=== PATIENT | female | born 2000 | race African-American/Black ===

== ENCOUNTER 2021-02-13 00:32 | Inpatient (IN) ==
[2021-02-13 01:18] LABS: Basophils % 0.3 % (0.0-0.8); Eosinophils # 0.1 10*3/uL (0.0-0.87); Eosinophils % 0.4 % (0.00-10.9); Hematocrit 36.9 VOL% (35.7-47.0); Hemoglobin 12.7 GM/DL (12.0-16.0); Immature Granulocytes % 0.3 %; Immature Granulocytes Absolute 0.03 #; Lymphocytes # 3.5 10*3/uL (1.4-4.0); Mean Corpuscular HGB Conc 34.4 GM/DL (32-36); Mean Corpuscular Volume 84.4 FL (87-102); Mean Platelet Volume 12.3 FL (9.6-12.0); Monocytes % 8.1 % (1.7-12.7); Neutrophils % 59.9 % (38.7-73.9); Platelet Count 176 T/CUMM (130-400); Red Blood Count 4.37 MC/CUMM (3.8-5.5); Red Cell Distribution Width 12.5 % (9.3-17.3); White Blood Count 11.1 T/CUMM (4-12)
[2021-02-13 01:36] LABS: Alanine Aminotransferase 11 U/L (13-56); Albumin 2.8 G/DL (3.4-5.0); Alkaline Phosphatase 92 U/L (45-117); Aspartate Amino Transferase 18 U/L (0-37); Bilirubin,Direct < 0.100 MG/DL (0.0-0.20); Bilirubin,Total < 0.39 MG/DL (0.20-1.00); Blood Urea Nitrogen 16 MG/DL (7-18); Calcium 8.9 MG/DL (8.5-10.1); Carbon Dioxide 20 MMOL/L (21-32); Estimated Glom Filtration Rate 131 ML/MIN; Glucose 85 MG/DL (74-106); Osmolality,Calculated 274.7 MOS/KG (273-304); Potassium 3.9 MMOL/L (3.5-5.1); Sodium 138 MMOL/L (136-145); Total Protein 6.9 G/DL (6.4-8.2); Uric Acid 5.4 MG/DL (2.6-6.0)
[2021-02-13 01:42] LABS: INR 0.9; PT Patient Result 10.1 SECS (10.5-12.0); Partial Thromboplastin Time 28.8 SECS (23.9-33.8)
[2021-02-13] MEDS ORDERED: LABETALOL 100 MG/20 ML VIAL IV PRN ×2 (01:44)
[2021-02-13] MEDS ORDERED: LABETALOL 20 MG/4 ML SYRINGE IV PRN (01:44)
[2021-02-13] MEDS ORDERED: LABETALOL 100 MG/20 ML VIAL IV ONE (01:46)
[2021-02-13] MEDS ORDERED: ONDANSETRON 4 MG/2 ML VIAL ONE (01:46)
[2021-02-13] MEDS ORDERED: ONDANSETRON 4 MG/2 ML VIAL IV PRN (01:50)
[2021-02-13] MEDS ORDERED: LABETALOL 20 MG/4 ML SYRINGE IV ONE (01:50)
[2021-02-13] MEDS ORDERED: LACTATED RINGERS 1,000 ML IV SCH (02:00)
[2021-02-13] MEDS ORDERED: MAGNESIUM SULF RIDER 4 GM/100 ML PREMIX IV ONE (02:21)
[2021-02-13] MEDS ORDERED: MAGNESIUM SULFATE 1 GM/2 ML VIAL IM ONE (02:21)
[2021-02-13] MEDS ORDERED: MAGNESIUM SULF DRIP 40 GM/1,000 ML ML IV ONE (02:21)
[2021-02-13] MEDS ORDERED: MEPERIDINE 50 MG/1 ML VIAL ONE (02:22)
[2021-02-13] MEDS ORDERED: BUTORPHANOL 2 MG/ML VIAL IV PRN (02:22)
[2021-02-13] MEDS: MEPERIDINE 50 MG/1 ML VIAL IV PRN (02:27)
[2021-02-13] MEDS ORDERED: PROMETHAZINE 25 MG/1 ML VIAL IM ONE (02:38)
[2021-02-13] MEDS ORDERED: BETAMETH SODIUM PHOS/ACETATE 30 MG/5 ML VIAL IM SCH (02:38)
[2021-02-13] MEDS ORDERED: PROMETHAZINE 25 MG/1 ML VIAL ONE (02:39)
[2021-02-13] MEDS ORDERED: BETAMETH SODIUM PHOS/ACETATE 30 MG/5 ML VIAL ONE (02:40)
[2021-02-13 02:50] LABS: Blood, Urine Negative (Negative); Glucose,Urine (UA) Negative (Negative); Hyaline Casts,Urine 10 /LPF (0-3); Ketones,Urine 5 mg/dL (Negative); Mucus,Urine Many /LPF (Occasional); Nitrite,Urine Negative (Negative); Protein,Urine >=500 MG/DL; RBC,Urine 8 /HPF (0-4); Squamous Epithelial Cell,Urine Few /HPF (0-10); Urine Appearance CLEAR (Clear); Urine Color Amber (Yellow); Urine Specific Gravity 1.041 (1.001-1.035)
[2021-02-13 02:55] LABS: Bilirubin,Urine Small mg/dL (Negative)
[2021-02-13] MEDS ORDERED: MAGNESIUM SULF DRIP 40 GM/1,000 ML ML IV SCH (03:00)
[2021-02-13 03:14] LABS: Barbiturates Screen,Urine Negative (Negative); Benzodiazepines Screen,Urine Negative (Negative); Cannabinoid Screen,Urine Positive (Negative); Opiate Screen,Urine Negative (Negative); Phencyclidine Screen,Urine Negative (Negative)
[2021-02-13 03:43] LABS: Protein/Creatinine Ratio,Urine 0.8 RATIO
[2021-02-13 07:31] LABS: Rubella Antibody IgG Result Reactive (NonReactive)
[2021-02-13 07:37] LABS: Hepatitis B Surface Ag Quant < 0.10 Index; Hepatitis B Surface Ag Result Non-Reactive (NonReactive)
[2021-02-13 07:50] LABS: HIV Antigen/Antibody Result Nonreactive (Nonreactive)
[2021-02-13 09:17] LABS: Basophils % 0.1 % (0.0-0.8); Hematocrit 36.7 VOL% (35.7-47.0); Immature Granulocytes % 0.6 %; Immature Granulocytes Absolute 0.06 #; Lymphocytes # 0.9 10*3/uL (1.4-4.0); Lymphocytes % 9.8 % (21.3-54.2); Mean Corpuscular HGB Conc 35.4 GM/DL (32-36); Mean Corpuscular Volume 83.4 FL (87-102); Mean Platelet Volume 12.2 FL (9.6-12.0); Neutrophils % 88.5 % (38.7-73.9); Platelet Count 170 T/CUMM (130-400); Red Cell Distribution Width 12.8 % (9.3-17.3); White Blood Count 9.6 T/CUMM (4-12)
[2021-02-13 09:31] LABS: INR 0.9; PT Patient Result 9.9 SECS (10.5-12.0); Partial Thromboplastin Time 28.8 SECS (23.9-33.8)
[2021-02-13 09:34] LABS: Alanine Aminotransferase 9 U/L (13-56); Albumin 2.9 G/DL (3.4-5.0); Alkaline Phosphatase 94 U/L (45-117); Aspartate Amino Transferase 16 U/L (0-37); Bilirubin,Direct < 0.100 MG/DL (0.0-0.20); Blood Urea Nitrogen 15 MG/DL (7-18); Calcium 8.4 MG/DL (8.5-10.1); Carbon Dioxide 19 MMOL/L (21-32); Estimated Glom Filtration Rate 131 ML/MIN; Glucose 112 MG/DL (74-106); Sodium 136 MMOL/L (136-145); Total Protein 7.1 G/DL (6.4-8.2); Uric Acid 5.4 MG/DL (2.6-6.0)
[2021-02-13 09:50] LABS: Bilirubin,Urine Negative (Negative); Blood, Urine Small mg/dL (Negative); Glucose,Urine (UA) Negative (Negative); Hyaline Casts,Urine 22 /LPF (0-3); Ketones,Urine Negative (Negative); Mucus,Urine Occasional /LPF (Occasional); Nitrite,Urine Negative (Negative); Protein,Urine 30 MG/DL; RBC,Urine 9 /HPF (0-4); Squamous Epithelial Cell,Urine Occasional /HPF (0-10); Urine Appearance CLEAR (Clear); Urine Color Yellow (Yellow); Urine Specific Gravity 1.034 (1.001-1.035)
[2021-02-13 10:16] LABS: Protein/Creatinine Ratio,Urine 0.4 RATIO
[2021-02-13] MEDS: LABETALOL 100 MG TABLET PO SCH ×2 (11:08→22:00)
[2021-02-13] MEDS ORDERED: DEXTROSE 5% LACTATED RINGERS 250 ML IV ONE (21:50)
[2021-02-13] MEDS ORDERED: DEXTROSE 5% LACTATED RINGERS 1,000 ML IV ONE ×2 (21:50→23:30)
[2021-02-13] MEDS ORDERED: BETAMETH SODIUM PHOS/ACETATE 30 MG/5 ML VIAL IM ONE (22:55)
[2021-02-14] MEDS ORDERED: ceFAZolin 2,000 MG/50 ML DUPLEX IV ONE (07:06)
[2021-02-14] MEDS ORDERED: CITRIC ACID/SODIUM CITRATE 30 ML UDCUP PO ONE (07:06)
[2021-02-14 07:18] LABS: Basophils % 0.1 % (0.0-0.8); Hematocrit 34.7 VOL% (35.7-47.0); Hemoglobin 11.9 GM/DL (12.0-16.0); Immature Granulocytes % 0.6 %; Immature Granulocytes Absolute 0.06 #; Mean Corpuscular HGB Conc 34.3 GM/DL (32-36); Mean Corpuscular Volume 85.5 FL (87-102); Mean Platelet Volume 12.9 FL (9.6-12.0); Monocytes % 2.8 % (1.7-12.7); Neutrophils % 87.5 % (38.7-73.9); Platelet Count 171 T/CUMM (130-400); Red Blood Count 4.06 MC/CUMM (3.8-5.5); White Blood Count 10.5 T/CUMM (4-12)
[2021-02-14] MEDS ORDERED: LACTATED RINGERS 1,000 ML IV SCH (07:30)
[2021-02-14] MEDS ORDERED: hydrALAZINE 20 MG/1 ML VIAL IV ONE (07:30)
[2021-02-14] MEDS ORDERED: FAMOTIDINE 20 MG/2 ML VIAL IV ONE ×2 (07:43→07:46)
[2021-02-14] MEDS ORDERED: OXYTOCIN/LR 20 UNIT/1,000 ML BAG IV ONE (08:00)
[2021-02-14] MEDS ORDERED: ONDANSETRON 4 MG/2 ML VIAL ONE (08:07)
[2021-02-14] MEDS ORDERED: BUPIVACAINE SPINAL 0.75% 2 ML AMP SPINAL ONE (08:07)
[2021-02-14] MEDS ORDERED: ACETAMINOPHEN INJ 1,000 MG/100 ML VIAL IV ONE (08:07)
[2021-02-14] MEDS ORDERED: PHENYLEPHRINE 1 MG/10 ML SYRINGE IV ONE (08:07)
[2021-02-14 08:29] LABS: INR 0.9; Partial Thromboplastin Time 27.5 SECS (23.9-33.8)
[2021-02-14 08:34] LABS: Alanine Aminotransferase < 6 U/L (13-56); Albumin 2.7 G/DL (3.4-5.0); Alkaline Phosphatase 94 U/L (45-117); Aspartate Amino Transferase 15 U/L (0-37); Bilirubin,Direct < 0.100 MG/DL (0.0-0.20); Blood Urea Nitrogen 18 MG/DL (7-18); Carbon Dioxide 20 MMOL/L (21-32); Estimated Glom Filtration Rate 100 ML/MIN; Glucose 118 MG/DL (74-106); Osmolality,Calculated 272.1 MOS/KG (273-304); Potassium 4.4 MMOL/L (3.5-5.1); Sodium 135 MMOL/L (136-145); Total Protein 6.9 G/DL (6.4-8.2); Uric Acid 5.6 MG/DL (2.6-6.0)
[2021-02-14] MEDS ORDERED: LACTATED RINGERS 1,000 ML IV ONE (08:46)
[2021-02-14] MEDS ORDERED: KETOROLAC 30 MG/1 ML VIAL ONE (09:15)
[2021-02-14] MEDS ORDERED: MIDAZOLAM 2 MG/2 ML VIAL ONE (09:20)
[2021-02-14 09:27] LABS: Cord Arterial Blood HCO3 11.4 MMOL/L
[2021-02-14 09:36] LABS: Cord Venous Blood PCO2 72.8 MMHG; Cord Venous Blood PO2 < 17
[2021-02-14] MEDS: LABETALOL 200 MG TABLET PO SCH ×2 (10:47→21:03)
[2021-02-14] MEDS: KETOROLAC 30 MG/1 ML VIAL IV SCH ×2 (16:19→23:18)
[2021-02-14] MEDS: ACETAMINOPHEN 500 MG TABLET PO SCH ×2 (16:19→23:18)
[2021-02-14] MEDS ORDERED: KETOROLAC 30 MG/1 ML VIAL IM SCH (17:00)
[2021-02-15 02:13] LABS: Basophils % 0.1 % (0.0-0.8); Hematocrit 30.5 VOL% (35.7-47.0); Hemoglobin 10.5 GM/DL (12.0-16.0); Immature Granulocytes % 0.6 %; Immature Granulocytes Absolute 0.09 #; Lymphocytes # 1.3 10*3/uL (1.4-4.0); Lymphocytes % 9.3 % (21.3-54.2); Mean Corpuscular HGB Conc 34.4 GM/DL (32-36); Mean Corpuscular Volume 86.9 FL (87-102); Mean Platelet Volume 11.9 FL (9.6-12.0); Monocytes % 7.6 % (1.7-12.7); Neutrophils % 82.4 % (38.7-73.9); Platelet Count 147 T/CUMM (130-400); Red Blood Count 3.51 MC/CUMM (3.8-5.5); Red Cell Distribution Width 13.2 % (9.3-17.3); White Blood Count 14.3 T/CUMM (4-12)
[2021-02-15] MEDS: KETOROLAC 30 MG/1 ML VIAL IV SCH ×2 (05:04→09:35)
[2021-02-15] MEDS: ACETAMINOPHEN 500 MG TABLET PO SCH (05:05)
[2021-02-15] MEDS: LABETALOL 200 MG TABLET PO SCH ×3 (07:55→21:15)
[2021-02-15] MEDS: DOCUSATE SODIUM 100 MG CAPSULE PO SCH ×2 (09:41→21:15)
[2021-02-15] MEDS: IBUPROFEN 800 MG TABLET PO PRN (16:33)
[2021-02-16] MEDS: IBUPROFEN 800 MG TABLET PO PRN ×2 (02:10→15:24)
[2021-02-16] MEDS ORDERED: oxyCODONE/ACETAMINOPHEN 5-325 MG TABLET ONE (02:26)
[2021-02-16] MEDS ORDERED: oxyCODONE/ACETAMINOPHEN 5-325 MG TABLET PO PRN (02:29)
[2021-02-16] MEDS: MEPERIDINE 50 MG/1 ML VIAL IV PRN (03:53)
[2021-02-16] MEDS ORDERED: BUTORPHANOL 2 MG/ML VIAL IV ONE (04:04)
[2021-02-16] MEDS ORDERED: hydrALAZINE 20 MG/1 ML VIAL ONE (04:11)
[2021-02-16] MEDS: hydrALAZINE 20 MG/1 ML VIAL IV PRN ×2 (04:14→06:22)
[2021-02-16 08:14] LABS: Basophils # 0.1 10*3/uL (0.0-0.2); Basophils % 0.4 % (0.0-0.8); Eosinophils % 0.1 % (0.00-10.9); Hematocrit 30.7 VOL% (35.7-47.0); Hemoglobin 10.5 GM/DL (12.0-16.0); Immature Granulocytes Absolute 1.03 #; Lymphocytes # 2.4 10*3/uL (1.4-4.0); Lymphocytes % 13.8 % (21.3-54.2); Mean Corpuscular HGB Conc 34.2 GM/DL (32-36); Mean Platelet Volume 11.9 FL (9.6-12.0); Monocytes % 8.9 % (1.7-12.7); Neutrophils % 70.8 % (38.7-73.9); Platelet Count 107 T/CUMM (130-400); Red Blood Count 3.53 MC/CUMM (3.8-5.5); Red Cell Distribution Width 13.5 % (9.3-17.3); White Blood Count 17.3 T/CUMM (4-12)
[2021-02-16 08:34] LABS: INR 0.9; PT Patient Result 10.7 SECS (10.5-12.0); Partial Thromboplastin Time 28.1 SECS (23.9-33.8)
[2021-02-16 08:39] LABS: Band Neutrophils 1 % (0-10); Lymphocytes 18 % (20-55); Segmented Neutrophils 71 % (50-85); Total Cells Counted 100
[2021-02-16 08:40] LABS: Reactive Lymphocytes Few
[2021-02-16 08:41] LABS: Albumin 2.2 G/DL (3.4-5.0); Bilirubin,Direct 0.11 MG/DL (0.0-0.20); Bilirubin,Total 0.6 MG/DL (0.20-1.00); Calcium 8.1 MG/DL (8.5-10.1); Osmolality,Calculated 277.5 MOS/KG (273-304); Potassium 4.1 MMOL/L (3.5-5.1); Total Protein 5.4 G/DL (6.4-8.2); Uric Acid 5.6 MG/DL (2.6-6.0)
[2021-02-16 08:44] LABS: Spherocytes Slight
[2021-02-16] MEDS: DOCUSATE SODIUM 100 MG CAPSULE PO SCH ×2 (09:14→21:17)
[2021-02-16] MEDS: hydrALAZINE 25 MG TABLET PO SCH ×3 (09:14→21:18)
[2021-02-16] MEDS: LABETALOL 200 MG TABLET PO SCH ×2 (09:15→21:17)
[2021-02-17] MEDS: IBUPROFEN 800 MG TABLET PO PRN (01:57)
[2021-02-17 07:57] LABS: Basophils % 0.2 % (0.0-0.8); Eosinophils % 0.1 % (0.00-10.9); Hematocrit 28.6 VOL% (35.7-47.0); Hemoglobin 9.8 GM/DL (12.0-16.0); Immature Granulocytes Absolute 0.21 #; Lymphocytes # 2.4 10*3/uL (1.4-4.0); Lymphocytes % 22.9 % (21.3-54.2); Mean Corpuscular HGB Conc 34.3 GM/DL (32-36); Mean Corpuscular Volume 87.7 FL (87-102); Mean Platelet Volume 11.5 FL (9.6-12.0); Monocytes % 8.2 % (1.7-12.7); Neutrophils % 66.6 % (38.7-73.9); Platelet Count 60 T/CUMM (130-400); Red Blood Count 3.26 MC/CUMM (3.8-5.5); Red Cell Distribution Width 13.8 % (9.3-17.3); White Blood Count 10.5 T/CUMM (4-12)
[2021-02-17] MEDS: DOCUSATE SODIUM 100 MG CAPSULE PO SCH (08:37)
[2021-02-17] MEDS: hydrALAZINE 25 MG TABLET PO SCH (08:37)
[2021-02-17] MEDS: LABETALOL 200 MG TABLET PO SCH (08:37)
[2021-02-17 13:38] VITALS: BP 155/97
== END 2021-02-17 12:00 | disposition home or self-care (01) | DRG 540 ==
LOC: N.LDOUT 00:32 → N.LD 00:36 → N.OB 02-14 13:58
PROVIDERS: ADMIT Obstetrics & Gynecology; ATTEND Obstetrics & Gynecology
PROC: LDCSECT (ICD-10-PCS; 2021-02-14 08:10)